=== PATIENT | male | born 1935 | race Caucasian/White ===

== ENCOUNTER 2016-09-14 11:54 | Emergency (ER) | payer OTHER ==
--- NOTE | 2016-09-14 13:53 | DIAGNOSTIC IMAGING REPORT ---
PROCEDURE: XR CHEST 2 VIEW INDICATION: SYNCOPE TECHNIQUE: PA and lateral views. COMPARISON: None. FINDINGS: Lungs are clear. COPD. Heart and mediastinum are normal. Thorax is normal. IMPRESSION: 1. Negative chest.
--- NOTE | 2016-09-14 15:59 | ED ORDER SUMMARY ---
..... Patient: TARSHA MILTON OrderSheet [facility] VisitID: [id number] [place] [address] 81y, M Registration Date/Time: 09/14/2016 ORDER SHEET Weight: 72.5 kg (stated) Allergies: No Known Drug Allergy GENERAL ORDERS: Diet (Please order in [employer]) (2000 mercedes Diabetic Diet) (12:21 09/14/2016 LNations ER Tech1 verbal order read back to Jer Moreno) (12:24 LNations ER Tech1) Agency Recruiter (Continuous) (syncope) (12:31 09/14/2016 Jer Moreno) (Ack 12:33 LNations ER Tech1) (12:57 DDean R.N.) POC Glucose (12:32 09/14/2016 Jer Moreno) (Ack 12:34 LNations ER Tech1) (12:57 DDean R.N.) CBC w Diff Urgent (12:32 09/14/2016 eJr Mroeno) (Ack 12:33 LNations ER Tech1) (12:57 DDean R.N.) CMP Urgent (12:32 09/14/2016 Jer Moreno) (Ack 12:33 LNations ER Tech1) (12:57 DDean R.N.) UA-Culture if indicated Urgent (12:32 09/14/2016 Jer Moreno) (Ack 12:33 LNations ER Tech1) (12:57 DDean R.N.) PT with INR Urgent (12:32 09/14/2016 Jer Moreno) (Ack 12:33 LNations ER Tech1) (12:57 DDean R.N.) Troponin-I Urgent (12:09/14/2016 Jer Moreno) (Ack 12:33 LNations ER Tech1) (12:57 DDean R.N.) Pulse oximeter (12:32 09/14/2016 Jer Moreno) (Ack 12:33 LNations ER Tech1) (12:57 DDean R.N.) EKG - ER Stat (12:09/14/2016 Jer Moreno) (12:35 LNations ER Tech1) Chest 2V Urgent (13:24 09/14/2016 Jer Moreno) (Ack 13:26 LNations ER Tech1) (13:45 LNations ER Tech1) Troponin-I (redraw 2 hours after first trop drawn) Urgent (13:24 09/14/2016 Jer Moreno) (Ack 13:26 LNations ER Tech1) (15:59 DDean R.N.) MEDICATION ORDERS: IV FLUIDS: IV Saline Lock (12:32 09/14/2016 Jer Moreno) (12:35 Juan Manuel R.NDuane) ORDER SHEET NOTES: [Electronically signed by Kandis Nowak R.N. (16:22 09/14/2016)] [Electronically signed by Vincent Leung Dr. (07:33 09/20/2016)] [Electronically locked/signed by Kandis Nowak R.N. (16:09/14/2016)]
--- NOTE | 2016-09-14 15:59 | ED ORDER SUMMARY ---
..... Patient: TARSHA MILTON OrderSheet [facility] VisitID: [id number] [place] [address] 81y, M Registration Date/Time: 09/14/2016 ORDER SHEET Weight: 72.5 kg (stated) Allergies: No Known Drug Allergy GENERAL ORDERS: Diet (Please order in [employer]) (2000 mercedes Diabetic Diet) (12:21 09/14/2016 LNations ER Tech1 verbal order read back to Jer Moreno) (12:24 LNations ER Tech1) Sulfonator Operator (Continuous) (syncope) (12:31 09/14/2016 Jer Moreno) (Ack 12:33 LNations ER Tech1) (12:57 DDean R.N.) POC Glucose (12:32 09/14/2016 Jer Moreno) (Ack 12:34 LNations ER Tech1) (12:57 DDean R.N.) CBC w Diff Urgent (12:32 09/14/2016 Jer Moreno) (Ack 12:33 LNations ER Tech1) (12:57 DDean R.N.) CMP Urgent (12:32 09/14/2016 Jer Moreno) (Ack 12:33 LNations ER Tech1) (12:57 DDean R.N.) UA-Culture if indicated Urgent (12:32 09/14/2016 Jer Moreno) (Ack 12:33 LNations ER Tech1) (12:57 DDean R.N.) PT with INR Urgent (12:32 09/14/2016 Jer Moreno) (Ack 12:33 LNations ER Tech1) (12:57 DDean R.N.) Troponin-I Urgent (12:09/14/2016 Jer Moreno) (Ack 12:33 LNations ER Tech1) (12:57 DDean R.N.) Pulse oximeter (12:32 09/14/2016 Jer Moreno) (Ack 12:33 LNations ER Tech1) (12:57 DDean R.N.) EKG - ER Stat (12:09/14/2016 Jer Moreno) (12:35 LNations ER Tech1) Chest 2V Urgent (13:24 09/14/2016 Jer Moreno) (Ack 13:26 LNations ER Tech1) (13:45 LNations ER Tech1) Troponin-I (redraw 2 hours after first trop drawn) Urgent (13:24 09/14/2016 Jer Moreno) (Ack 13:26 LNations ER Tech1) (15:59 DDean R.N.) MEDICATION ORDERS: IV FLUIDS: IV Saline Lock (12:32 09/14/2016 Jer Moreno) (12:35 Juan Manuel R.NDuane) ORDER SHEET NOTES: [Electronically signed by Kandis Nowak R.N. (16:22 09/14/2016)] [Electronically signed by Vincent Leung Dr. (07:33 09/20/2016)] [Electronically locked/signed by Kandis Nowak R.N. (16:09/14/2016)]
--- NOTE | 2016-09-14 15:59 | ED NURSING NOTES ---
Clinical Report - Nurses [facility] [address] [place] [address] 09/14/2016 11:55 [id number] TRI[facility] Triage time 12:05. Acuity: LEVEL 3. Chief Complaint: DIZZINESS. Alert. IJEOMA COMA SCORE: [place] Coma Scale: 15- eyes open spontaneously (4); best verbal response- oriented x 4 (5); best motor response- obeys commands (6). --12:18 Kasey Resendez R.N. 12:05 09/14/16. BP: 147/78. HR: 50. RR: 18. O2 saturation: 93% on room air. Temp: 97.6 F (oral). Pain level now: 0/10. --12:18 Kasey Resendez R.N. Weight: 72.5 kg stated. Height/Length: 72 inches Per Patient. BMI: 21.7. --12:15 Kasey Resendez R.N. Medications MetFORMIN HCl Oral (Tablet 500 mg) 2 tablets, daily. Simvastatin Oral (Tablet 10 mg) 1 tablet, daily. --12:09 Kasey Resendez R.N. Albuterol Sulfate HFA Inhalation, as needed. --12:17 Kasey Resendez R.N. Medication/allergy information source: the patient's jail record. --12:18 Kasey Resendez R.N. Allergies No Known Drug Allergy. --12:09 Kasey Resendez R.N. History Arrived by EMS. Historian: EMS. Primary physician (Efe). This started today. ( pt lives in a care home setting, he was outside and staff said he was going to smoke, EMS states they found him diaphoretic and he stated he "got dizzy", pt doesn't remember if he smoked, denies pain). 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 See EMS report. Finger stick glucose performed (122). BP: 160 / 92; then 140/86. HR: 60. SOCIAL HX: Heavy tobacco smoker- 1 pack per day. Occasional alcohol use. No drug use. FALL RISK ASSESSMENT: Fall risk assessment completed. Risk factors identified include patient impairment of mobility and cognition. FUNCTIONAL ASSESSMENT: Functional assessment performed: requires assistance with the activities of daily living; uses cane- this mobility impairment is an ongoing problem. LEARNING NEEDS ASSESSMENT: A learning needs assessment was performed. Factors affecting the patient's ability to learn include cognitive limitations. --12:18 Kasey Resendez R.N. PROBLEMS: Abnormal EKG. Near Syncope. Asthma. Dementia. Hypercholesterolemia. Diabetes Mellitus. --12:10 Kasey Resendez R.N. ADDITIONAL SURGERIES: Tonsillectomy. --12:10 Kasey Resendez R.N. Assessment GENERAL / NEURO / PSYCH: Alert. Appears in no acute distress. Patient appears calm and cooperative. ( doesn't know where he is, what day it is or the president). RESPIRATORY: Respirations not labored. SKIN: Skin is warm and dry. --12:18 Kasey Resendez R.N. Interventions ID band on patient. To treatment room. --12:18 Kasey Resendez R.N. PHYSICAL ASSESSMENT 12:05. To room via stretcher. Patient gowned. GENERAL / NEURO / PSYCH: Appears in no acute distress. Alert. Speech within normal limits. ( hx of dementia , pt denies pain). HEENT: No facial asymmetry noted. RESPIRATORY: Respirations not labored. CVS: Capillary refill less than 2 seconds. GI / : Abdomen soft. SKIN: Skin is warm and dry. --12:24 Janna Ramirez R.N. NURSING PROGRESS NOTES 12:05. Oxygen administered. nursing center tutor placed on patient. Patient gowned. Head of bed elevated. Reassurance given. Patient identifiers checked. Call light placed in reach. Side rails up. Bed placed in lowest position. Patient ready for evaluation- chart flagged. --12:25 Janna Ramirez R.N. 12:10. Care transferred and report received. --12:25 Janna Ramirez R.N. EKG time: (12:12 AM). EKG was performed by a tech and shown to the ED physician. --12:30 Deandre Nesbitt 12:15 09/14/2016 Site #1 started via IV in the left antecubital space with an 20g angiocath, with aseptic technique and good blood return; one attempt. Blood drawn: rainbow set. Labeled in the presence of the patient and sent to the lab. Saline lock flushed. --12:33 Kandis Nowak R.N. 12:40. ( FSBS=82). --12:54 Janna Ramirez R.N. 12:40 09/14/16. BP: 129/74. HR: 55. RR: 18. O2 saturation: 100%. Temp: deferred. Pain level now: 0/10. Additional comments: pt resting quietly, denies c/o family at bedside . --12:54 Janna Ramirez R.N. 12:55 pt given dinner tray. Patient ID band checked for patient name and birthdate: patient confirmed. Clean catch urine collected with return of esequiel-colored clear urine; sample sent to lab for urinalysis and drug screen. Specimen labeled in the presence of the patient (pt stood at bedside to void, staff at bedside. pt denies dizziness while standing). --13:30 Janna Ramirez R.N. 13:31 09/14/16. Patient transported to radiology by stretcher with tech. --13:31 Janna Ramirez R.N. 13:45. Patient returned from radiology by stretcher with tech. --14:11 Janna Ramirez R.N. 14:20. Patient ID band checked for patient name and birthdate. Blood samples drawn by lab per protocol ; labeled in presence of the patient and sent to lab: rainbow set. --14:44 Janna Ramirez R.N. 14:25 09/14/16. BP: 135/65. HR: 49. RR: 18. O2 saturation: 97% on nasal cannula at 2 liters/minute. Temp: deferred. Pain level now: 0/10. Additional comments: pt sitting in chair, reading paper, in no acute distress. son at bedside. Pt asking when he can go home . --14:46 Janna Ramirez R.N. 16:00 09/14/2016 Site #1 removed upon discharge. Bandaid applied. --16:17 Kandis Nowak R.N. 15:30 patient resting, son at bedside awaiting lab results. Given coffee. --16:19 Kandis Nowak R.N. DISPOSITION / DISCHARGE 16:15. Condition at departure: improved. Ability to learn limited by dementia; teaching performed with the family. Discharge instructions provided and reviewed with the patient and family. Family verbalized understanding. Written instructions provided in Cook Islander. The patient was discharged home and accompanied by family. He left the Emergency Department ambulatory and via private vehicle. Family member driving. --16:16 Kandis Nowak R.N. 16:00 09/14/16. BP: 168/82. HR: 52. RR: 16. O2 saturation: 100%. Temp: deferred. Pain level now: 0/10. --16:16 Kandis Nowak R.N. Locked/Released at 09/14/2016 16:22 by Kandis Nowak R.N.
--- NOTE | 2016-09-14 15:59 | ED CLINICAL REPORT ---
Clinical Report - Physicians/Mid Levels [facility] [address] [place] [address] 09/14/2016 11:55 Patient: TARSAH MILTON Arrived- By ambulance. Historian- patient. HISTORY OF PRESENT ILLNESS The patient is still unconscious (resolved). Has not recovered. Chief Complaint: SYNCOPE. It was abrupt in onset and has been intermittent. This occurred today. Event was witnessed. The patient had no preceding symptoms. At time of event, he was sitting. The patient had preceding symptoms of light-headedness. The patient felt faint and lost consciousness. The episode was brief and lasted seconds. No injuries noted. Currently he feels normal. No nausea currently. No headache currently. (reports no preceeding symptoms of headache, chest pain, or shortness of breath). Similar symptoms previously: None. Recent medical care: Not recently seen/assessed. REVIEW OF SYSTEMS No chest pain, abdominal pain, vomiting, black stools or bloody stools. No fever. All systems otherwise negative, except as recorded above. PAST HISTORY See nurses notes. Medications: Albuterol Sulfate HFA Inhalation, as needed. MetFORMIN HCl Oral (Tablet 500 mg) 2 tablets, daily. Simvastatin Oral (Tablet 10 mg) 1 tablet, daily. Allergies: No Known Drug Allergy. SOCIAL HISTORY Smoker- current status unknown. No alcohol use or drug use. No recent travel. Is a local resident. ADDITIONAL NOTES The nursing notes have been reviewed. PHYSICAL EXAM Vital Signs: 09/14/2016 16:00 BP: 168/82. HR: 52. RR: 16. O2 saturation: 100%. Pain level now: 0/10. Hypertensive. Oxygen saturation normal. Appearance: Alert. No acute distress. Eyes: Pupils equal, round and reactive to light. No nystagmus. Extraocular movements normal. ENT: Normal ENT inspection. TM's normal. Moist mucous membranes. Pharynx normal. Neck: Normal inspection. Neck supple. CVS: Bradycardia. Heart sounds normal. Pulses normal. Rhythm normal. Respiratory: No respiratory distress. Abdomen: Soft and nontender. No organomegaly. Back: Normal inspection. Skin: Skin warm and dry. Normal skin color. No rash. Normal skin turgor. Extremities: Extremities exhibit normal ROM. No lower extremity edema. Neuro: Alert. Oriented X 3. Mood/affect normal. Cranial nerves normal (as tested). No cerebellar findings. No motor deficit. No sensory deficit. LABS, X-RAYS, AND EKG EKG: No acute ischemia. Narrow-complex bradycardia (50). Sinus bradycardia. Normal P waves. First-degree atrioventricular block (226). Normal ST and T waves and QTc. The study has been interpreted contemporaneously by me. The study has been independently viewed by me. The EKG appears to be a good tracing. Chest X-ray: (PROCEDURE: XR CHEST 2 VIEW INDICATION: SYNCOPE TECHNIQUE: PA and lateral views. COMPARISON: None. FINDINGS: Lungs are clear. COPD. Heart and mediastinum are normal. Thorax is normal. IMPRESSION: 1. Negative chest.). Views: PA and lateral. Technique: good. The X-rays were independently viewed by me and interpreted by the radiologist. The X-rays were discussed with the radiologist (via pacs). Laboratory Tests: UA-Culture if indicated: (ABDULAZIZ: 09/14/2016 12:50) ( MsgRcvd 09/14/2016 13:11) Final results Test Result Flag Units (Reference) URINE COLOR YELLOW URINE APPEARANCE CLEAR URINE GLUCOSE NEGATIVE (NEGATIVE) URINE BILIRUBIN NEGATIVE (NEGATIVE) URINE KETONE NEGATIVE (NEGATIVE) URINE SPECIFIC GRAVITY 1.010 (1.010-1.030) URINE PH 7.0 (5.0-8.0) URINE PROTEIN NEGATIVE (NEGATIVE) URINE UROBILINOGEN 0.2 EU/dL (0.2-1.0) URINE NITRITE NEGATIVE (NEGATIVE) URINE BLOOD NEGATIVE (NEGATIVE) URINE LEUK ESTERASE NEGATIVE (NEGATIVE) URINE RBC RARE rbc/hpf (0-1) URINE WBC RARE wbc/hpf (0-1) URINE EPITHELIAL CELLS NONE SEEN EPI/hpf (0-5) URINE BACTERIA NONE SEEN (NONE SEEN) URINE COMMENT CULT NOT INDICATED URINE CULTURES ARE SET-UP BASED ON THE FOLLOWING CRITERIA:POSITIVE NITRITEPOSITIVE LEUKOCYTE ESTERASEGREATER THAN 10 WHITE BLOOD CELLSMODERATE (2+) OR GREATER BACTERIA CBC w Diff: (ABDULAZIZ: 09/14/2016 12:15) ( MsgRcvd 09/14/2016 12:43) Final results Test Result Flag Units (Reference) WHITE BLOOD COUNT 5.6 K/uL (4.5-11.5) RED BLOOD COUNT 4.58 M/uL (4.50-5.90) HEMOGLOBIN 14.0 gm/dL (13.5-17.5) HEMATOCRIT 42.1 % (41.0-53.0) MEAN CELL VOLUME 92 fL (80-100) MEAN CORPUSCULAR HGB 31 pg (26-34) MEAN CORPUSCULAR HGB CONC 33 g/dL (31-37) RED CELL DISTRIBUTION WIDTH 14.4 % (11.6-14.8) PLATELET COUNT 183 K/uL (150-400) NEUTROPHIL % 69.7 % (50-75) LYMPH % 23.2 L % (25-40) MONO % 4.8 % (3-14) EOSINOPHIL % 2.0 % (0-4) BASOPHIL % 0.3 % (0-2) PT with INR: (ABDULAZIZ: 09/14/2016 12:15) ( [facility] 09/14/2016 12:47) Final results Test Result Flag Units (Reference) INR 1.0 (0.8-1.2) Low Intensity Therapy: INR 1.5-2.0 PT range 18.5-23.1Mod.Intensity Therapy: INR 2.0-3.0 PT range 23.1-31.5High Intensity Therapy: INR 2.5-3.5 PT range 27.4-35.5High Intensity Therapy 2: INR 3.0-4.0 PT range 31.5-39.3 Troponin-I: (ABDULAZIZ: 09/14/2016 14:20) ( [facility] 09/14/2016 15:07) Final results Test Result Flag Units (Reference) TROPONIN I <0.05 ng/mL (0.00-1.5) TROPONIN REFERENCE RANGE:<0.1 NEGATIVE0.1-1.5 INDETERMINANT>1.5 POSITIVE CMP: (ABDULAZIZ: 09/14/2016 12:15) ( [facility] 09/14/2016 13:00) Final results Test Result Flag Units (Reference) GLUCOSE 110 mg/dL (70-110) BUN 15 mg/dL (7-18) CREATININE 1.1 mg/dL (0.6-1.3) Estimated GFR >60 mL/min Estimated GFR- >60 mL/min Note: Persistent reduction over 3 months in eGFR<60 mL/min/1.73 m2 defines CKD. Patients with eGFR values>=60 mL/min/1.73 m2 may also have CKD if evidence ofpersistent proteinuria. Additional information may be foundat www.kidney.org. SODIUM 143 mmol/L (136-145) POTASSIUM 4.0 mmol/L (3.5-5.1) CHLORIDE 106 mmol/L (98-107) CARBON DIOXIDE 29 mmol/L (21-32) CALCIUM 9.4 mg/dL (8.5-10.1) TOTAL PROTEIN 6.9 g/dL (6.4-8.2) ALBUMIN 3.9 g/dL (3.3-5.0) BILIRUBIN, TOTAL 0.8 mg/dL (0.0-1.0) ALKALINE PHOSPHATASE 73 U/L (46-116) AST (SGOT) 12 L U/L (15-37) ALT (SGPT) 12 U/L (12-78) TROPONIN I <0.05 ng/mL (0.00-1.5) TROPONIN REFERENCE RANGE:<0.1 NEGATIVE0.1-1.5 INDETERMINANT>1.5 POSITIVE . PROGRESS AND PROCEDURES Course of Care: the patient is a pleasant 81-year-old male presenting for evaluation of syncopal event. Patient has recoveredwithout anyreport of injury or pain anywhere. Patient will be evaluated with the [place] syncope role. EKG, chest x-ray, laboratory studies have been ordered. Because of the patient'brown greater than 65, we'll also have the patient evaluated with chest x-ray, urinalysis, and electrolytes for anyinfectious etiologies for the patient's syncopal event. Patient is agreeable to treatment plan. Fingerstick glucose is noted to be normal uponinitial evaluation. Patient is noted to be bradycardic but otherwise no acute abnormalities noted. EKG is unremarkable. Chest x-ray does not show any Acute consolidations, the rest patient's laboratory studies are also unremarkable. Because of the patient's age being greater than 65 years old, had discussed with the patient and with the son was also at bedside about admission to the hospital. They are currently declining offers of admission to the hospital and further workup. patient states that he is over 78 years old and has led affulfilling life. Patient states that if the time comes the time comes Patient reports there is also difference between quality and quantity oflife. Patient reports recentrestarting ofsmoking as an example of this. do not feel I can force patient to stay in the hospital against his will. Patient makes soundaarguments for refusing admission to the hospital at this point in time. Would like the patient to have a good quality of lifeand see the adverse risk of having the patient admitted to the hospitalwhich goes against his wishes. Patient is alert and oriented and otherwise nontoxic in appearance. Do not fill patient has serious bacterial infection or other serious causes for the syncopal type event. Would beevaluating possible cardiac cause for the patient's event with admission to the hospital however again patient does refuse this. Patient is able to make medical decisions for himself. Patient is alert and oriented 4. Patient with logical linear thinking. Patient is also accompanied by son and was agreeable to thetreatment and plan. Patient was encouraged to follow up with his doctor and return immediately for any symptoms. Patient is currentlyagreeable to this. Prior to discharge, the patient was noted to be dancing in the hallway and in no acute distress. I discussed with patient workup, diagnosis, home care, follow-up, and return precautions. All questions answered. The patient and son expressed understanding of these instructions and was agreeable to them. Disposition: Discharged. Condition: stable. CLINICAL IMPRESSION Syncope of unknown cause(acute). 09/14/2016 12:05 BP: 147/78. HR: 50. RR: 18. O2 saturation: 93%. Temp: 97.6 F. Pain level now: 0/10. Blood pressure normal. Oxygen saturation normal. Sinus bradycardia (acute moderate/severe). INSTRUCTIONS (contact your doctor for filling out an advance directive form). Warnings: GENERAL WARNINGS: Return or contact your physician immediately if your condition worsens or changes unexpectedly, if not improving as expected, or if other problems arise. SPECIFICALLY, return if you develop chest pain, fluttering sensation in your chest, lightheadedness, fainting, numbness, weakness or extreme fatigue. Your Current Medications: CONTINUE TAKING THE FOLLOWING MEDICATIONS: Albuterol Sulfate HFA Inhalation : prn. MetFORMIN HCl Oral : Tablet 500 mg, 2 tablets daily. Simvastatin Oral : Tablet 10 mg, 1 tablet daily. Follow-up: Return to the emergency department as needed. Follow up with your doctor in one week. Reason for referral: recheck today's concerns. Summary of care provided to patient via paper. Screening today revealed the patient's blood pressure to be in the normal range. The patient should follow up with a primary care provider for blood pressure management. Understanding of the discharge instructions verbalized by patient and parent. (Electronically signed by Vincent Leung Dr. 09/20/2016 7:33)
--- NOTE | 2016-09-14 15:59 | ED NURSING NOTES ---
Clinical Report - Nurses [facility] [address] [place] [address] 09/14/2016 11:55 [id number] Triage time 12:05. Acuity: LEVEL 3. Chief Complaint: DIZZINESS. Alert. IJEOMA COMA SCORE: [place] Coma Scale: 15- eyes open spontaneously (4); best verbal response- oriented x 4 (5); best motor response- obeys commands (6). --12:18 Kasey Resendez R.N. 12:05 09/14/16. BP: 147/78. HR: 50. RR: 18. O2 saturation: 93% on room air. Temp: 97.6 F (oral). Pain level now: 0/10. --12:18 Kasey Resendez R.N. Weight: 72.5 kg stated. Height/Length: 72 inches Per Patient. BMI: 21.7. --12:15 Kasey Resendez R.N. Medications MetFORMIN HCl Oral (Tablet 500 mg) 2 tablets, daily. Simvastatin Oral (Tablet 10 mg) 1 tablet, daily. --12:09 Kasey Resendez R.N. Albuterol Sulfate HFA Inhalation, as needed. --12:17 Kasey Resendez R.N. Medication/allergy information source: the patient's fdc record. --12:18 Kasey Resendez R.N. Allergies No Known Drug Allergy. --12:09 Kasey Resendez R.N. History Arrived by EMS. Historian: EMS. Primary physician (Efe). This started today. ( pt lives in a snf setting, he was outside and staff said he was going to smoke, EMS states they found him diaphoretic and he stated he "got dizzy", pt doesn't remember if he smoked, denies pain). Treatment EPIC WILLOW ANALYST: EMS treatment EPIC WILLOW ANALYST verbally communicated. See EMS report. Finger stick glucose performed (122). BP: 160 / 92; then 140/86. HR: 60. SOCIAL HX: Heavy tobacco smoker- 1 pack per day. Occasional alcohol use. No drug use. FALL RISK ASSESSMENT: Fall risk assessment completed. Risk factors identified include patient impairment of mobility and cognition. FUNCTIONAL ASSESSMENT: Functional assessment performed: requires assistance with the activities of daily living; uses cane- this mobility impairment is an ongoing problem. LEARNING NEEDS ASSESSMENT: A learning needs assessment was performed. Factors affecting the patient's ability to learn include cognitive limitations. --12:18 Kasey Resendez R.N. PROBLEMS: Abnormal EKG. Near Syncope. Asthma. Dementia. Hypercholesterolemia. Diabetes Mellitus. --12:10 Kasey Resendez R.N. ADDITIONAL SURGERIES: Tonsillectomy. --12:10 Kasey Resendez R.N. Assessment GENERAL / NEURO / PSYCH: Alert. Appears in no acute distress. Patient appears calm and cooperative. ( doesn't know where he is, what day it is or the president). RESPIRATORY: Respirations not labored. SKIN: Skin is warm and dry. --12:18 Kasey Resendez R.N. Interventions ID band on patient. To treatment room. --12:18 Kasey Resendez R.N. PHYSICAL ASSESSMENT 12:05. To room via stretcher. Patient gowned. GENERAL / NEURO / PSYCH: Appears in no acute distress. Alert. Speech within normal limits. ( hx of dementia , pt denies pain). HEENT: No facial asymmetry noted. RESPIRATORY: Respirations not labored. CVS: Capillary refill less than 2 seconds. GI / : Abdomen soft. SKIN: Skin is warm and dry. --12:24 Janna Ramirez R.N. NURSING PROGRESS NOTES 12:05. Oxygen administered. clinical staff anesthesiologist placed on patient. Patient gowned. Head of bed elevated. Reassurance given. Patient identifiers checked. Call light placed in reach. Side rails up. Bed placed in lowest position. Patient ready for evaluation- chart flagged. --12:25 Janna Ramirez R.N. 12:10. Care transferred and report received. --12:25 Janna Ramirez R.N. EKG time: (12:12 AM). EKG was performed by a tech and shown to the ED physician. --12:30 Deandre Nesbitt 12:15 09/14/2016 Site #1 started via IV in the left antecubital space with an 20g angiocath, with aseptic technique and good blood return; one attempt. Blood drawn: rainbow set. Labeled in the presence of the patient and sent to the lab. Saline lock flushed. --12:33 Kandis Nowak R.N. 12:40. ( FSBS=82). --12:54 Janna Ramirez R.N. 12:40 09/14/16. BP: 129/74. HR: 55. RR: 18. O2 saturation: 100%. Temp: deferred. Pain level now: 0/10. Additional comments: pt resting quietly, denies c/o family at bedside . --12:54 Janna Ramirez R.N. 12:55 pt given dinner tray. Patient ID band checked for patient name and birthdate: patient confirmed. Clean catch urine collected with return of esequiel-colored clear urine; sample sent to lab for urinalysis and drug screen. Specimen labeled in the presence of the patient (pt stood at bedside to void, staff at bedside. pt denies dizziness while standing). --13:30 Janna Ramirez R.N. 13:31 09/14/16. Patient transported to radiology by stretcher with tech. --13:31 Janna Ramirez R.N. 13:45. Patient returned from radiology by stretcher with tech. --14:11 Janna Ramirez R.N. 14:20. Patient ID band checked for patient name and birthdate. Blood samples drawn by lab per protocol ; labeled in presence of the patient and sent to lab: rainbow set. --14:44 Janna Ramirez R.N. 14:25 09/14/16. BP: 135/65. HR: 49. RR: 18. O2 saturation: 97% on nasal cannula at 2 liters/minute. Temp: deferred. Pain level now: 0/10. Additional comments: pt sitting in chair, reading paper, in no acute distress. son at bedside. Pt asking when he can go home . --14:46 Janna Ramirez R.N. 16:00 09/14/2016 Site #1 removed upon discharge. Bandaid applied. --16:17 Kandis Nowak R.N. 15:30 patient resting, son at bedside awaiting lab results. Given coffee. --16:19 Kandis Nowak R.N. DISPOSITION / DISCHARGE 16:15. Condition at departure: improved. Ability to learn limited by dementia; teaching performed with the family. Discharge instructions provided and reviewed with the patient and family. Family verbalized understanding. Written instructions provided in [place]. The patient was discharged home and accompanied by family. He left the Emergency Department ambulatory and via private vehicle. Family member driving. --16:16 Kandis Nowak R.N. 16:00 09/14/16. BP: 168/82. HR: 52. RR: 16. O2 saturation: 100%. Temp: deferred. Pain level now: 0/10. --16:16 Kandis Nowak R.N. Locked/Released at 09/14/2016 16:22 by Kandis Nowak R.N.
--- NOTE | 2016-09-20 07:34 | ED DISCHARGE INSTRUCTIONS ---
Patient: TARSHA MILTON General Instructions [facility] VisitID: [id number] [place] [address] 81y, M Registration Date/Time: 09/14/2016 Syncope of unknown cause(acute). 09/14/2016 12:05 BP: 147/78. HR: 50. RR: 18. O2 saturation: 93%. Temp: 97.6 F. Pain level now: 0/10. Blood pressure normal. Oxygen saturation normal. Sinus bradycardia (acute moderate/severe). INSTRUCTIONS (contact your doctor for filling out an advance directive form). Warnings: GENERAL WARNINGS: Return or contact your physician immediately if your condition worsens or changes unexpectedly, if not improving as expected, or if other problems arise. SPECIFICALLY, return if you develop chest pain, fluttering sensation in your chest, lightheadedness, fainting, numbness, weakness or extreme fatigue. Your Current Medications: CONTINUE TAKING THE FOLLOWING MEDICATIONS: Albuterol Sulfate HFA Inhalation : prn. MetFORMIN HCl Oral : Tablet 500 mg, 2 tablets daily. Simvastatin Oral : Tablet 10 mg, 1 tablet daily. Follow-up: Return to the emergency department as needed. Follow up with your doctor in one week. Reason for referral: recheck today's concerns. Summary of care provided to patient via paper. Screening today revealed the patient's blood pressure to be in the normal range. The patient should follow up with a primary care provider for blood pressure management. Understanding of the discharge instructions verbalized by patient and parent. ADDITIONAL INFORMATION Fainting:Uncertain Cause Fainting (syncope) is a temporary loss of consciousness ("passing out"). It occurs when blood flow to the brain is reduced. Near-fainting ("near-syncope") is very similar to fainting, but you do not fully "pass out". The common minor causes of fainting include: sudden fear, pain, nausea, emotional stress and overexertion. Suddenly standing up after sitting or lying for a long time can also cause fainting. The more serious causes for fainting are due to either a very slow or very fast or very slow heart beat ("arrhythmia"), other types of heart disease, dehydration, blood loss, seizure, stroke or ruptured blood vessel in the brain. Taking too much high blood pressure medicine can also cause low blood pressure and fainting. The exact cause of your episode is not certain. However, the tests today did not show any of the serious causes of fainting. Sometimes further testing is needed to find out if a serious problem exists. Therefore, it is important that you follow-up with your doctor as advised. Home Care: 1) Rest today. You may resume your normal activities when you are feeling back to normal. It is best to remain with someone who can check on you for the next 24 hours to watch for another episode of fainting. 2) If you become light-headed or dizzy, lie down immediately or sit with your head between your knees. 3) Because we do not know the exact cause of your near fainting spell, it is possible for another spell to occur without warning. Therefore, do not drive a car or operate dangerous equipment, do not take a bath alone (use a shower instead) and do not swim alone until your doctor says that you are no longer in danger of having another fainting spell. Follow Up with your doctor as advised. Get Prompt Medical Attention if any of the following occur: -- Another fainting spell occurs, which is not explained by the common causes listed above -- Chest, arm, neck, jaw, back or abdominal pain -- Shortness of breath -- Severe headache or seizure -- Blood in vomit, stools (black or red color) -- Unexpected vaginal bleeding -- Palpitations (very rapid or very slow or irregular heart beat) -- Signs of stroke: Weakness of an arm or leg or one side of the face Difficulty with speech or vision Extreme drowsiness, confusion, dizziness or fainting Bradycardia Bradycardia is a condition where the heart beats at a slow rate (less than 60 beats per minute). Bradycardia may occur in persons with heart disease, but can also occur in healthy persons. Symptoms include: dizziness, weakness, shortness of breath, chest pain, and fainting. Bradycardia that is causing symptoms can be treated with medicines or a pacemaker, depending on the cause.Bradycardia that is not causing symptoms may be evaluated further by your own doctor in the office. Nin-Oazby-Pqpyesy Causes: Side effect of certain medicines (such as beta-blockers, calcium channel blockers, digitalis, amiodarone, clonidine, lithium) Medical conditions such as hypoglycemia (low blood sugar), hypothyroidism (low thyroid), electrolyte disorder, sleep apnea Athletes, especially long-distance runners, may have a slow heart rate. This can be normal. Heart-Related Causes: Coronary artery disease (angina or prior heart attack, also known as acute myocardial infarction, or AMI) Disease of the heart valves Congestive heart failure Sick sinus syndrome Sometimes the cause for the arrhythmia cannot be found. Home Care: Resume your usual activities when you are feeling back to normal. If you develop any of the symptoms below during exertion, then you should not exert yourself until evaluated further by your doctor. Follow Up with your doctor or as advised by our staff. Get Prompt Medical Attention if any of the following occur: Weakness, dizziness, lightheadedness, or fainting Chest, shoulder, arm, neck, or backpain Shortness of breath Slow heart rate (under 50 beats per minute, at rest) Palpitations (the sense that your heart is fluttering or beating fast or hard or irregular) Difficulty with speech or vision, weakness of an arm or leg Swelling of the ankles You have been given the following additional information: Syncope, Unk Cause Bradycardia (Electronically signed by Vincent Leung Dr. 09/20/2016 7:33)
--- NOTE | 2016-09-20 07:34 | ED MED RECONCILIATION SUMMARY ---
Patient: TARSHA MILTON Medication Reconciliation Report [facility] VisitID: [id number] [address] [place] [address] 81y, M Registration Date/Time: 09/14/2016 Weight: 72.5 kg Height/Length: 72 in. BMI: 21.7 ALLERGIES: No Known Drug Allergy The patient's Home Medications are listed below: CONTINUE TAKING THE FOLLOWING MEDICATIONS: Albuterol Sulfate HFA Inhalation MetFORMIN HCl Oral (500 mg) 2 tablets, daily Simvastatin Oral (10 mg) 1 tablet, daily The source(s) of the original Home Medication information: patient's [facility] record The following Medications were given to the patient in the Emergency Department: None. The following Medications were prescribed to the patient: None.
--- NOTE | 2016-09-20 07:34 | ED MAR SUMMARY ---
..... Medication Administration Record [facility] [address] [place], [place] [id number] Patient: TARSHA MILTON Visit ID: [id number] 81y, M Weight: 72.5 kg Height/Length: 72 in BMI: 21.7 ALLERGIES: No Known Drug Allergy
--- NOTE | 2016-09-20 07:34 | ED MED RECONCILIATION SUMMARY ---
Patient: TARSHA MILTON Medication Reconciliation Report [facility] VisitID: [id number] [address] [place] [address] 81y, M Registration Date/Time: 09/14/2016 Weight: 72.5 kg Height/Length: 72 in. BMI: 21.7 ALLERGIES: No Known Drug Allergy The patient's Home Medications are listed below: CONTINUE TAKING THE FOLLOWING MEDICATIONS: Albuterol Sulfate HFA Inhalation MetFORMIN HCl Oral (500 mg) 2 tablets, daily Simvastatin Oral (10 mg) 1 tablet, daily The source(s) of the original Home Medication information: patient's half-way record The following Medications were given to the patient in the Emergency Department: None. The following Medications were prescribed to the patient: None.
--- NOTE | 2016-09-20 07:34 | ED MAR SUMMARY ---
..... Medication Administration Record [facility] [address] [place], [place] [id number] Patient: TARSHA MILTON Visit ID: [id number] 81y, M Weight: 72.5 kg Height/Length: 72 in BMI: 21.7 ALLERGIES: No Known Drug Allergy
== END 2016-09-14 16:05 | disposition home or self-care (01) ==
LOC: ED SRH 11:54
DX: R55 Syncope and collapse (principal); R00.1 Bradycardia, unspecified; Z79.84 Long term (current) use of oral hypoglycemic drugs; Z79.899 Other long term (current) drug therapy; Z79.51 Long term (current) use of inhaled steroids
CPT/HCPCS: 90004; 90098; 90100; 90616; 94060; 95059

== ENCOUNTER 2016-09-30 16:28 | Outpatient (CLI) | payer OTHER | END 2016-09-30 23:00 | LOC: RT SRH 16:28 | DX: R55 Syncope and collapse (principal) ==